=== PATIENT | female | born 1965 | race Caucasian/White ===

== ENCOUNTER 2017-04-01 13:03 | Emergency (ER) | payer OTHER ==
[~2017-04-01] VITALS: Ht 157.5 cm; Wt 54.4 kg
[2017-04-01] MEDS ORDERED: ASPIRIN 325 MG TABLET ONE (13:57)
[2017-04-01] MEDS ORDERED: ASPIRIN 325 MG TABLET PO ONE (14:00)
--- NOTE | 2017-04-01 14:14 | NUR ---
Patient does not wish to proceed with medical care recommended by Dr. MAYS. Patient given information related to possible complications, up to and including , which could occur as a result of leaving the hospital at this time. Patient verbalizes understanding of risks involved due to leaving against medical advice. Patient has signed AMA form.
[2017-04-01 14:18] VITALS: BP 150/77
== END 2017-04-01 14:19 | disposition left against medical advice (07) ==
LOC: ER 13:04
DX: R07.81 Pleurodynia (principal)
CPT/HCPCS: 93005; 99283; A4606; Z7610